=== PATIENT | male | born 1970 | race Caucasian/White ===

== ENCOUNTER → 2018-01-12 | Outpatient (CLI) | payer MEDICARE, MEDICAID ==
[2018-01-12 08:50] LABS: BASOPHILS # (AUTO) 0.09 x10^3/uL (0-0.1); BASOPHILS % (AUTO) 1 % (0-1); EOSINOPHILS # (AUTO) 0.24 x10^3/uL (0-0.4); EOSINOPHILS % (AUTO) 2 % (1-7); LYMPHOCYTES % (AUTO) 28 % (22-44); MD NO; MEAN CORPUSCULAR HEMOGLOBIN 28.7 pg (27.5-34.5); MEAN CORPUSCULAR HGB CONC 33.3 g/dL (33.2-36.2); MEAN PLATELET VOLUME 7.4 fL (7.4-10.4); MONOCYTES % (AUTO) 6 % (2-9); NEUTROPHILS # (AUTO) 6.91 x10^3/uL (1.8-6.8); NEUTROPHILS % (AUTO) 63 % (42-75); PLATELET COUNT 367 x10^3/uL (130-400); RED BLOOD COUNT 5.63 x10^6/uL (4.38-5.82); RED CELL DISTRIBUTION WIDTH 13.7 % (9.4-14.8)
[2018-01-12 08:57] LABS: ALANINE AMINOTRANSFERASE 34 U/L (12-78); ALBUMIN 3.7 g/dL (3.4-5.0); ANION GAP 8 mmol/L (5-15); CALCIUM 8.3 mg/dL (8.5-10.1); CHLORIDE 105 mmol/L (98-107)
[2018-01-12 09:08] LABS: ALKALINE PHOSPHATASE 66 U/L (45-117); CHOL/HDL RATIO 4.2; CHOLESTEROL, TOTAL 167 mg/dL (140-239); CREATININE 0.84 mg/dL (0.7-1.3); HDL CHOL % 24 % (26-37); HDL CHOLESTEROL (DIRECT) 40 mg/dL (40-60); HEMOGLOBIN A1C 9.4 % (4.2-6.3); LDL CHOLESTEROL,CALCULATED 97 mg/dL (54-169); LDL/HDL RATIO 2.4 (0.5-3.0); TOTAL PROTEIN 7.7 g/dL (6.4-8.2); TRIGLYCERIDES 150 mg/dL (50-200); VLDL CHOLESTEROL 30 mg/dL (0-25)
== END | disposition home or self-care (01) ==
LOC: LAB 08:32
PROVIDERS: ATTEND Family Medicine
DX: I10 Essential (primary) hypertension (principal); E78.5 Hyperlipidemia, unspecified; R53.83 Other fatigue; R73.9 Hyperglycemia, unspecified
CPT/HCPCS: 36415; 80053; 80061; 83036; 84443; 85025

== ENCOUNTER → 2018-03-28 | Outpatient (CLI) | payer MEDICARE, MEDICAID ==
[2018-03-28 10:36] LABS: HEMOGLOBIN A1C 7.6 % (4.2-6.3)
== END | disposition home or self-care (01) ==
LOC: LAB 09:55
PROVIDERS: ATTEND Family Medicine
DX: E11.9 Type 2 diabetes mellitus without complications (principal)
CPT/HCPCS: 36415; 82947; 83036

== ENCOUNTER 2018-07-25 08:46 | Outpatient (CLI) | payer MEDICARE, MEDICAID ==
[2018-07-25 09:15] LABS: BASOPHILS # (AUTO) 0.04 x10^3/uL (0-0.1); BASOPHILS % (AUTO) 0 % (0-1); EOSINOPHILS # (AUTO) 0.27 x10^3/uL (0-0.4); EOSINOPHILS % (AUTO) 3 % (1-7); LYMPHOCYTES # (AUTO) 1.81 x10^3/uL (1-3.4); LYMPHOCYTES % (AUTO) 23 % (22-44); MD NO; MEAN CORPUSCULAR HEMOGLOBIN 28.7 pg (27.5-34.5); MEAN CORPUSCULAR HGB CONC 32.7 g/dL (33.2-36.2); MEAN CORPUSCULAR VOLUME 87.8 fL (81-97); MEAN PLATELET VOLUME 7.9 fL (7.4-10.4); MONOCYTES # (AUTO) 0.54 x10^3/uL (0.2-0.8); MONOCYTES % (AUTO) 7 % (2-9); NEUTROPHILS # (AUTO) 5.41 x10^3/uL (1.8-6.8); NEUTROPHILS % (AUTO) 67 % (42-75); PLATELET COUNT 303 x10^3/uL (130-400); RED BLOOD COUNT 5.69 x10^6/uL (4.38-5.82); RED CELL DISTRIBUTION WIDTH 13.2 % (9.4-14.8)
[2018-07-25 09:24] LABS: ALANINE AMINOTRANSFERASE 28 U/L (12-78); ALBUMIN 3.9 g/dL (3.4-5.0); ANION GAP 8 mmol/L (5-15); CALCIUM 8.8 mg/dL (8.5-10.1); CHLORIDE 106 mmol/L (98-107); CHOLESTEROL, TOTAL 159 mg/dL (140-239); CREATININE 0.89 mg/dL (0.7-1.3); TRIGLYCERIDES 105 mg/dL (50-200); VLDL CHOLESTEROL 21 mg/dL (0-25)
[2018-07-25 09:35] LABS: ALKALINE PHOSPHATASE 44 U/L (45-117); BILIRUBIN,TOTAL 1.2 mg/dL (0.2-1.0); CHOL/HDL RATIO 4.5; HDL CHOL % 22 % (26-37); HDL CHOLESTEROL (DIRECT) 35 mg/dL (40-60); LDL CHOLESTEROL,CALCULATED 103 mg/dL (54-169); LDL/HDL RATIO 2.9 (0.5-3.0); TOTAL PROTEIN 7.5 g/dL (6.4-8.2)
[2018-07-25 11:02] LABS: HEMOGLOBIN A1C 6.1 % (4.2-6.3)
== END 2018-07-25 23:59 | disposition home or self-care (01) ==
LOC: LAB 08:46
PROVIDERS: ATTEND Family Medicine
DX: E11.9 Type 2 diabetes mellitus without complications (principal); E78.5 Hyperlipidemia, unspecified; I10 Essential (primary) hypertension; R53.83 Other fatigue
CPT/HCPCS: 36415; 80053; 80061; 83036; 84403; 84443; 85025

== ENCOUNTER 2018-08-15 06:48 | Outpatient (CLI) | payer MEDICARE, MEDICAID | END 2018-08-15 23:59 | disposition home or self-care (01) | LOC: RAD 06:48 | PROVIDERS: ATTEND Family Medicine | DX: Z02.9 Encounter for administrative examinations, unspecified (principal) ==

== ENCOUNTER 2018-09-07 08:51 | Outpatient (CLI) | payer MEDICARE, MEDICAID ==
[2018-09-07] MEDS ORDERED: MIDAZOLAM 1 MG/ML, 5ML ONE (09:33)
[2018-09-07] MEDS ORDERED: FENTANYL PF 100 MCG/2ML ONE (09:33)
[2018-09-15] MEDS ORDERED: METFORMIN PO (08:34)
[2018-09-15] MEDS ORDERED: BENICAR PO (08:34)
[2018-09-15] MEDS ORDERED: IBUPROFEN PO (08:34)
[2018-09-15] MEDS ORDERED: MULTIVITAMIN PO (08:34)
== END 2018-09-07 23:59 | disposition home or self-care (01) ==
LOC: RAD 08:51
PROVIDERS: ATTEND Family Medicine
DX: M25.512 Pain in left shoulder (principal)
CPT/HCPCS: 73221; 99156; 99157; J2250; J3010

== ENCOUNTER 2018-09-15 07:16 | Day surgery (SDC) | payer MEDICARE, MEDICAID ==
[~2018-09-15] VITALS: Ht 185.4 cm; Wt 158.1 kg
[2018-09-15 08:27] VITALS: BP 118/79
== END 2018-09-15 11:35 | disposition home or self-care (01) ==
LOC: RAD 07:16 → EDSTATUS 09:00 → OUT 11:35
PROVIDERS: ATTEND Family Medicine
DX: H53.47 Heteronymous bilateral field defects (principal); M75.122 Complete rotator cuff tear or rupture of left shoulder, not specified as traumatic; M75.22 Bicipital tendinitis, left shoulder; I10 Essential (primary) hypertension; E11.9 Type 2 diabetes mellitus without complications; G47.33 Obstructive sleep apnea (adult) (pediatric); E66.01 Morbid (severe) obesity due to excess calories; Z79.1 Long term (current) use of non-steroidal anti-inflammatories (NSAID); Z79.899 Other long term (current) drug therapy; Z87.891 Personal history of nicotine dependence; Z88.5 Allergy status to narcotic agent
CPT/HCPCS: 70553; 73221; 82962; A9585; J1100; J2405; J2704; J7120

== ENCOUNTER 2019-07-05 11:52 | Emergency (ER) | payer MEDICARE, MEDICAID ==
[~2019-07-05] VITALS: Ht 185.4 cm; Wt 156.4 kg
[~2019-07-05 11:52] MED LIST: BENICAR PO; IBUPROFEN PO; METFORMIN PO; MULTIVITAMIN PO
--- NOTE | 2019-07-05 12:26 | NUR ---
THIS IS A 49 YO M W/ C/O EPISODES OF HYPOXIA AT HOME. PT STATES HE WANTS AN RX FOR O2 TO WEAR AT HOME. PT STATES HE WILL BE SITTING WHEN HE NOTICES A FLUTTER IN HIS ESOPHAGUS AND THEN HIS O2 SAT READS IN THE 70'S. PT DENIES RESP HX. RESP EVEN AND UNLABORED, VSS, NADN. O2 SAT 97% ROOM AIR. PT IS SITTING UP ON SYMIC BIOMEDICAL W/ CALL LIGHT IN REACH. AWAITING ED EVAL. DENIES FURTHER NEEDS AT THIS TIME.
--- NOTE | 2019-07-05 12:50 | NUR ---
PATRICIA MORRIS IN ROOM.
[2019-07-05] MEDS ORDERED: ASPIRIN 81 MG TABLET CHEW ONE (12:59)
[2019-07-05] MEDS ORDERED: SODIUM CHLORIDE FLUSH 10ML SYR IVF ONE (13:00)
[2019-07-05] MEDS ORDERED: ASPIRIN 81 MG TABLET CHEW PO ONE (13:00)
--- NOTE | 2019-07-05 13:03 | NUR ---
PT MEDICATED PER EMAR. [facility] IN ROOM FOR EKG. LAB IN ROOM.
[2019-07-05 13:32] LABS: BASOPHILS # (AUTO) 0.03 x10^3/uL (0-0.1); BASOPHILS % (AUTO) 0 % (0-1); EOSINOPHILS # (AUTO) 0.26 x10^3/uL (0-0.4); EOSINOPHILS % (AUTO) 3 % (1-7); LYMPHOCYTES # (AUTO) 2.21 x10^3/uL (1-3.4); LYMPHOCYTES % (AUTO) 24 % (22-44); MD NO; MEAN CORPUSCULAR HEMOGLOBIN 29.8 pg (27.5-34.5); MEAN CORPUSCULAR HGB CONC 33.4 g/dL (33.2-36.2); MEAN CORPUSCULAR VOLUME 89.3 fL (81-97); MEAN PLATELET VOLUME 7.7 fL (7.4-10.4); MONOCYTES # (AUTO) 0.82 x10^3/uL (0.2-0.8); MONOCYTES % (AUTO) 9 % (2-9); NEUTROPHILS # (AUTO) 6.03 x10^3/uL (1.8-6.8); NEUTROPHILS % (AUTO) 65 % (42-75); PLATELET COUNT 319 x10^3/uL (130-400); RED CELL DISTRIBUTION WIDTH 13.4 % (9.4-14.8)
--- NOTE | 2019-07-05 13:34 | NUR ---
RAD IN ROOM.
[2019-07-05 13:45] LABS: TROPONIN I < 0.015 ng/mL (0.000-0.045)
[2019-07-05 13:48] VITALS: BP 151/103
--- NOTE | 2019-07-05 13:53 | NUR ---
PT RESTING ON Contix W/ CALL LIGHT IN REACH, CONNECTED TO ALL MONITORING, VSS, NADN. AWAITING RESULTS.
--- NOTE | 2019-07-05 13:55 | NUR ---
ALL TESTS RESULTED. PT IS UP FOR RECHECK AT THIS TIME.
== END 2019-07-05 14:37 | disposition home or self-care (01) ==
LOC: ED 14:22
DX: R06.00 Dyspnea, unspecified (principal); R07.89 Other chest pain; R94.31 Abnormal electrocardiogram [ECG] [EKG]; E11.9 Type 2 diabetes mellitus without complications; K21.9 Gastro-esophageal reflux disease without esophagitis; E66.01 Morbid (severe) obesity due to excess calories; I10 Essential (primary) hypertension; Z87.891 Personal history of nicotine dependence; Z68.42 Body mass index [BMI] 45.0-49.9, adult
CPT/HCPCS: 36415; 71045; 83880; 84484; 85025; 85379; 93005; 99285

== ENCOUNTER → 2019-10-29 | Outpatient (CLI) | payer MEDICARE, MEDICAID ==
[2019-10-29 12:39] LABS: CREATININE 1.11 mg/dL (0.7-1.3)
== END | disposition home or self-care (01) ==
LOC: LAB 12:04
PROVIDERS: ATTEND Family Medicine
DX: N18.9 Chronic kidney disease, unspecified (principal)
CPT/HCPCS: 36415; 82565

== ENCOUNTER 2019-10-30 06:54 | Outpatient (CLI) | payer MEDICARE, MEDICAID ==
[2019-10-30] MEDS ORDERED: FENTANYL PF 100 MCG/2ML ONE (07:59)
[2019-10-30] MEDS ORDERED: MIDAZOLAM 1 MG/ML, 5ML ONE (07:59)
[2019-10-30] MEDS ORDERED: OMNIPAQUE 350 MG/ML, 75ML BOTTLE ONE (08:56)
== END 2019-10-30 23:59 | disposition home or self-care (01) ==
LOC: RAD 06:54
PROVIDERS: ATTEND Orthopaedic Surgery
DX: R91.1 Solitary pulmonary nodule (principal); M25.511 Pain in right shoulder; M75.111 Incomplete rotator cuff tear or rupture of right shoulder, not specified as traumatic; S43.431A Superior glenoid labrum lesion of right shoulder, initial encounter; M75.51 Bursitis of right shoulder; M19.011 Primary osteoarthritis, right shoulder; M19.012 Primary osteoarthritis, left shoulder; M75.42 Impingement syndrome of left shoulder; M75.41 Impingement syndrome of right shoulder; Z79.891 Long term (current) use of opiate analgesic; Z79.899 Other long term (current) drug therapy; Z88.5 Allergy status to narcotic agent; X58.XXXA Exposure to other specified factors, initial encounter; Y93.89 Activity, other specified; Y92.89 Other specified places as the place of occurrence of the external cause; Y99.8 Other external cause status
CPT/HCPCS: 71260; 73221; 99156; 99157; J2250; J3010; Q9967

== ENCOUNTER 2020-04-18 21:15 | Emergency (ER) | payer MEDICARE, MEDICAID ==
[~2020-04-18] VITALS: Ht 185.4 cm; Wt 161.0 kg
[2020-04-18] MEDS ORDERED: LORazepam 1MG TABLET ONE (21:58)
[2020-04-18] MEDS ORDERED: PLEASE ENTER HEIGHT AND WEIGHT MC SCH (22:00)
[2020-04-18] MEDS ORDERED: LORazepam 1MG TABLET PO ONE (22:00)
[2020-04-18 22:25] LABS: BASOPHILS % (AUTO) 1 % (0-1); EOSINOPHILS % (AUTO) 1 % (1-7); LYMPHOCYTES % (AUTO) 14 % (22-44); MEAN CORPUSCULAR HEMOGLOBIN 29.8 pg (27.5-34.5); MEAN CORPUSCULAR HGB CONC 34.2 g/dL (33.2-36.2); MEAN PLATELET VOLUME 7.7 fL (7.4-10.4); MONOCYTES % (AUTO) 7 % (2-9); NEUTROPHILS % (AUTO) 78 % (42-75); PLATELET COUNT 294 x10^3/uL (130-400)
[2020-04-18 22:29] LABS: MD NO
[2020-04-18 22:36] LABS: ALANINE AMINOTRANSFERASE 37 U/L (12-78); ALBUMIN 3.9 g/dL (3.4-5.0); ANION GAP 10 mmol/L (5-15); CALCIUM 8.7 mg/dL (8.5-10.1); CHLORIDE 108 mmol/L (98-107); CREATININE 1.16 mg/dL (0.7-1.3)
[2020-04-18 22:38] LABS: ALKALINE PHOSPHATASE 62 U/L (45-117); BILIRUBIN,TOTAL 0.9 mg/dL (0.2-1.0); TOTAL PROTEIN 7.5 g/dL (6.4-8.2)
[2020-04-18 23:43] VITALS: BP 142/85
== END 2020-04-18 23:45 | disposition home or self-care (01) ==
LOC: ED 21:55
DX: F12.129 Cannabis abuse with intoxication, unspecified (principal); F41.1 Generalized anxiety disorder
CPT/HCPCS: 36415; 80053; 85025; 99283